=== PATIENT | male | born 1970 | race Caucasian/White ===

== ENCOUNTER 2016-08-28 21:31 | Emergency (ER) | payer OTHER ==
[2016-08-28 22:22] LABS: BILIRUBIN NEGATIVE (NEGATIVE); BLOOD NEGATIVE Ery/uL (NEGATIVE); CLARITY CLEAR (CLEAR); COLOR YELLOW (YELLOW); GLUCOSE (U) NORMAL (NORMAL); KETONE (U) NEGATIVE (NEGATIVE); LEUKOCYTES NEGATIVE Leu/uL (NEGATIVE); NITRITE NEGATIVE (NEGATIVE); PROTEIN NEGATIVE (NEGATIVE); UROBILINOGEN 0.2 mg/dL (0.2-1.0)
[2016-08-28 22:23] LABS: BASOPHIL 0.3 % (0-2); EOSINOPHIL 0.5 % (0-5); HCT 46.1 % (42.0-52.0); HGB 15.1 g/dl (13.2-18.0); LYMPHOCYTE 26.3 % (15-48); MCH 28.2 pg (25.0-31.0); MCHC 32.8 g/dL (32.0-36.0); MONOCYTE 7.1 % (0-12); MPV 9.9 fL (6.0-9.5); NEUTROPHIL 65.8 % (41-80); PLT 383 K/uL (150-400); RBC 5.36 M/uL (4.70-6.00); RDW 14.9 % (11.5-14.0); WBC 11.3 K/uL (4.0-10.5)
[2016-08-28 22:30] LABS: BENZODIAZEPINES NEGATIVE (NEGATIVE)
[2016-08-28 22:31] LABS: AMPHETAMINES NEGATIVE (NEGATIVE); BARBITURATES NEGATIVE (NEGATIVE); COCAINE POSITIVE (NEGATIVE); MARIJUANA (THC) NEGATIVE (NEGATIVE); METHADONE NEGATIVE (NEGATIVE); TRICYCLIC ANTIDEPRESSANT NEGATIVE (NEGATIVE)
[2016-08-28 22:40] LABS: ALBUMIN 4.5 g/dL (3.5-5.0); BILIRUBIN - TOTAL 0.2 mg/dL (0.1-1.0); CREATININE 0.8 mg/dL (0.7-1.2); POTASSIUM 4.2 mmol/L (3.5-5.1); TOTAL PROTEIN 7.5 g/dL (6.4-8.3)
== END 2016-08-29 01:50 | disposition home or self-care (01) ==
LOC: FER 21:31
PROVIDERS: Internal Medicine
DX: R10.9 Unspecified abdominal pain (principal); M54.5 Low back pain; I10 Essential (primary) hypertension; F32.9 Major depressive disorder, single episode, unspecified; F17.200 Nicotine dependence, unspecified, uncomplicated; Z87.442 Personal history of urinary calculi; Z79.899 Other long term (current) drug therapy; Z98.890 Other specified postprocedural states
CPT/HCPCS: 36415; 80053; 80305; 81003; 83690; 85025

== ENCOUNTER 2016-09-07 03:06 | Emergency (ER) | payer OTHER ==
[2016-09-07 03:41] LABS: BILIRUBIN NEGATIVE (NEGATIVE); BLOOD 3+ Ery/uL (NEGATIVE); CLARITY CLEAR (CLEAR); COLOR YELLOW (YELLOW); GLUCOSE (U) NORMAL (NORMAL); KETONE (U) TRACE mg/dL (NEGATIVE); LEUKOCYTES NEGATIVE Leu/uL (NEGATIVE); NITRITE NEGATIVE (NEGATIVE); PROTEIN NEGATIVE (NEGATIVE); SPECIFIC GRAVITY >=1.030 (1.001-1.030); UROBILINOGEN 0.2 mg/dL (0.2-1.0); pH 5.5 (5.0-9.0)
[2016-09-07 03:44] LABS: BACTERIA TRACE; MUCOUS TRACE
[2016-09-07 04:01] LABS: BASOPHIL 0.3 % (0-2); EOSINOPHIL 1.1 % (0-5); HCT 44.4 % (42.0-52.0); HGB 14.7 g/dl (13.2-18.0); LYMPHOCYTE 25.9 % (15-48); MCH 28.5 pg (25.0-31.0); MCHC 33.1 g/dL (32.0-36.0); MONOCYTE 6.6 % (0-12); MPV 9.7 fL (6.0-9.5); NEUTROPHIL 66.1 % (41-80); PLT 403 K/uL (150-400); RBC 5.16 M/uL (4.70-6.00); RDW 14.9 % (11.5-14.0); WBC 10.3 K/uL (4.0-10.5)
[2016-09-07 04:15] LABS: ALBUMIN 4.2 g/dL (3.5-5.0); BILIRUBIN - TOTAL 0.2 mg/dL (0.1-1.0); CREATININE 0.7 mg/dL (0.7-1.2); GLOBULIN (CALCULATION) 2.5 g/dL (2.2-4.2); POTASSIUM 3.9 mmol/L (3.5-5.1); TOTAL PROTEIN 6.7 g/dL (6.4-8.3)
[2016-09-07 04:56] LABS: AMPHETAMINES NEGATIVE (NEGATIVE); BARBITURATES NEGATIVE (NEGATIVE); BENZODIAZEPINES NEGATIVE (NEGATIVE); COCAINE POSITIVE (NEGATIVE); MARIJUANA (THC) NEGATIVE (NEGATIVE); METHADONE NEGATIVE (NEGATIVE); TRICYCLIC ANTIDEPRESSANT NEGATIVE (NEGATIVE)
== END 2016-09-07 05:22 | disposition home or self-care (01) ==
LOC: FER 03:06
PROVIDERS: Emergency Medicine Emergency Medical Services
DX: R10.32 Left lower quadrant pain (principal); R11.0 Nausea; E86.9 Volume depletion, unspecified; I10 Essential (primary) hypertension; F41.9 Anxiety disorder, unspecified; F32.9 Major depressive disorder, single episode, unspecified; E78.5 Hyperlipidemia, unspecified; F17.210 Nicotine dependence, cigarettes, uncomplicated; Z87.442 Personal history of urinary calculi; Z88.0 Allergy status to penicillin; Z88.5 Allergy status to narcotic agent; Z88.6 Allergy status to analgesic agent; Z88.8 Allergy status to other drugs, medicaments and biological substances; Z79.899 Other long term (current) drug therapy
CPT/HCPCS: 36415; 80053; 80305; 81001; 83605; 85025; J1170; J2405

== ENCOUNTER 2020-12-11 21:34 | Emergency (ER) | payer OTHER ==
[~2020-12-11 21:34] MED LIST: KEFLEX250 MG PO
[2020-12-12] MEDS ORDERED: HYDROCODON-ACE1 EAC2 PO (00:43)
== END 2020-12-12 00:55 | disposition home or self-care (01) ==
LOC: FER 21:34
DX: S13.4XXA Sprain of ligaments of cervical spine, initial encounter (principal); S23.3XXA Sprain of ligaments of thoracic spine, initial encounter; S40.012A Contusion of left shoulder, initial encounter; M25.562 Pain in left knee; W17.89XA Other fall from one level to another, initial encounter
CPT/HCPCS: 72125; 72128; 73030; 73564

== ENCOUNTER 2021-03-03 15:35 | Emergency (ER) | payer OTHER ==
[~2021-03-03 15:35] MED LIST changes: +HYDROCODON-ACE1 EAC2 PO
[2021-03-03 21:03] LABS: BASOPHIL 0.5 % (0-2); EOSINOPHIL 2.2 % (0-5); HCT 54.7 % (42.0-52.0); HGB 17.8 g/dl (13.2-18.0); LYMPHOCYTE 29.7 % (15-48); MCH 29.7 pg (25.0-31.0); MCHC 32.5 g/dL (32.0-36.0); MCV 91.2 fL (78.0-100.0); MONOCYTE 8.5 % (0-12); MPV 10.1 fL (6.0-9.5); NEUTROPHIL 58.7 % (41-80); NRBC 0; PLT 347 K/uL (150-400); RDW 13.2 % (11.5-14.0); WBC 7.6 K/uL (4.0-10.5)
[2021-03-03 21:12] LABS: BILIRUBIN - TOTAL 0.3 mg/dL (0.2-1.0); BUN/CREAT RATIO (CALC) 14.8 RATIO; CREATININE 1.08 mg/dL (0.67-1.17); POTASSIUM 3.9 mmol/L (3.5-5.1)
== END 2021-03-03 23:46 | disposition home or self-care (01) ==
LOC: FER 15:35
PROVIDERS: Emergency Medicine Emergency Medical Services
DX: R19.7 Diarrhea, unspecified (principal); R11.2 Nausea with vomiting, unspecified; R10.84 Generalized abdominal pain; I10 Essential (primary) hypertension; Z20.822 Contact with and (suspected) exposure to COVID-19; Z90.49 Acquired absence of other specified parts of digestive tract; Z87.19 Personal history of other diseases of the digestive system; Z87.442 Personal history of urinary calculi; Z98.890 Other specified postprocedural states; Z88.8 Allergy status to other drugs, medicaments and biological substances; Z88.1 Allergy status to other antibiotic agents; Z91.041 Radiographic dye allergy status; Z88.5 Allergy status to narcotic agent; Z88.6 Allergy status to analgesic agent
CPT/HCPCS: 36415; 80053; 83605; 83690; 85025; J1170; J2405; J7120; Q9967; U0002